=== PATIENT | male | born 1950 | race Caucasian/White ===

== ENCOUNTER 2017-11-25 15:22 | Emergency (ER) | payer OTHER ==
--- NOTE | 2017-11-25 15:37 | PDOC ---
Rapid Medical Evaluation Chief Complaint: Urinary Problem Time Seen by Provider: 11/25/17 15:36 Medical Evaluation: Allergies Allergy/AdvReac Type Severity Reaction Status Date / Time No Known Allergies Allergy Verified 11/25/17 15:35 11/25/17 15:36 The patient presents with a chief complaint of: difficulty in urinating, has not voided since 5 am. I have performed a brief in-person evaluation of this patient; Pertinent physical exam findings: ambulatory, in no respiratory distress I have ordered the following: blake, ua ucx, labs, The patient will proceed to the ED for further evaluation
[2017-11-25 15:39] VITALS: BMI 25.2
[2017-11-25 16:13] LABS: BASO % 0.6 % (0-2.0); EOS % 0.1 % (0-4.5); HEMATOCRIT 42.8 % (35.4-49); HEMOGLOBIN 14.6 GM/dL (11.7-16.9); MEAN CELL VOLUME 90.9 fl (80-96); MEAN PLT VOLUME 10.9 fl (7.5-11.1); MONO % 4.7 % (3.8-10.2); NEUT % 89.6 % (42.8-82.8); PLATELET COUNT 184 K/MM3 (134-434); RBC 4.71 M/mm3 (4.00-5.60); WHITE BLOOD COUNT 11.1 K/mm3 (4.0-10.0)
[2017-11-25 16:18] LABS: URINE APPEARANCE CLEAR; URINE BILIRUBIN NEGATIVE (NEGATIVE); URINE BLOOD 1+ (NEGATIVE); URINE COLOR STRAW; URINE GLUCOSE (UA) NEGATIVE (NEGATIVE); URINE KETONE NEGATIVE (NEGATIVE); URINE LEUK ESTERASE NEGATIVE (NEGATIVE); URINE NITRITE NEGATIVE (NEGATIVE); URINE PROTEIN NEGATIVE (NEGATIVE); URINE UROBILINOGEN NEGATIVE mg/dL (0.2-1.0)
[2017-11-25 16:26] LABS: URINE MUCUS RARE
[2017-11-25 16:48] LABS: ALBUMIN 3.9 g/dl (3.4-5.0); ALK PHOS 84 U/L (45-117); ANION GAP 9 (8-16); BILIRUBIN,TOTAL 0.5 mg/dL (0.2-1.0); BLOOD UREA NITROGEN 13 mg/dL (7-18); CALCIUM 8.5 mg/dL (8.5-10.1); CHLORIDE 108 mmol/L (98-107); CO2 23 mmol/L (21-32); CREATININE 1.3 mg/dL (0.7-1.3); GLUCOSE,RANDOM 116 mg/dL (74-106); POTASSIUM 3.6 mmol/L (3.5-5.1); SGOT/AST 23 U/L (15-37); SGPT/ALT 24 U/L (12-78); SODIUM 140 mmol/L (136-145); TOT PROT 7.4 g/dl (6.4-8.2)
--- NOTE | 2017-11-25 17:04 | PDOC ---
History of Present Illness - General Chief Complaint: Urinary Problem Stated Complaint: URINARY PROBLEM Time Seen by Provider: 11/25/17 15:36 History Source: Patient Exam Limitations: No Limitations - History of Present Illness Travel History: No Initial Comments: 11/25/17 17:05 67-year-old male with no past medical history presents the ED with complaints of urinary retention since this morning. Patient arrived from [place] yesterday and states had no difficulty urinating until this morning when he tried to void and had no urine output. Patient states is the day went on the urgency continued without urinary output and complaints of suprapubic distention. Patient denies fever, chills, hematuria, history of prostate disease, recent UTI , or abdominal pain prior to onset. Patient denies taking [id number] medication. Timing/Duration: reports: getting worse Quality: reports: moderate, fullness Abdominal Pain Onset Location: reports: suprapubic Pain Radiation: reports: no radiation Aggravating Factors: improves with: None Alleviating Factors: improves with: None Past History - Travel Traveled outside of the country in the last 30 days: No - Past Medical History Allergies/Adverse Reactions: Allergies Allergy/AdvReac Type Severity Reaction Status Date / Time No Known Allergies Allergy Verified 11/25/17 15:35 Home Medications: Ambulatory Orders Ciprofloxacin HCl [Cipro] 500 mg PO BID #7 tablet 11/25/17 COPD: No - Immunization History Immunization Up to Date: Yes - Suicide/Smoking/Psychosocial Hx Smoking History: Never smoked Hx Alcohol Use: No Drug/Substance Use Hx: No Patient Lives Alone: No Lives with/in: spouse/SO Review of Systems - Review of Systems Able to Perform ROS?: Yes Constitutional: No: Symptoms Reported ABD/GI: Yes: Abdominal cramping : Yes: Urgency Musculoskeletal: No: Symptoms Reported Integumentary: No: Symptoms Reported Neurological: No: Symptoms reported *Physical Exam - Vital Signs Last Vital Signs Temp Pulse Resp BP Pulse Ox 97.6 F 93 H 18 146/102 98 11/25/17 15:36 11/25/17 15:36 11/25/17 15:36 11/25/17 15:36 11/25/17 15:36 - Physical Exam General Appearance: Yes: Nourished, Appropriately Dressed. No: Apparent Distress HEENT: positive: PETER Neck: positive: Normal Thyroid Respiratory/Chest: positive: Lungs Clear, Normal Breath Sounds. negative: Respiratory Distress, Accessory Muscle Use Cardiovascular: positive: Regular Rhythm, Regular Rate. negative: Murmur Gastrointestinal/Abdominal: positive: Soft. negative: Tenderness Male Genitalia: positive: normal genitalia, other (Gallegos catheter in place upon my my arrival. Gallegos was placed in RME. urine clear and yellow. total 450ml) Musculoskeletal: negative: CVA Tenderness Extremity: positive: Normal Capillary Refill. negative: Pedal Edema Neurologic: positive: Motor Strength 5/5 (ambulatory) ED Treatment Course - LABORATORY CBC & Chemistry Diagram: 11/25/17 15:58 11/25/17 15:58 - ADDITIONAL ORDERS Additional order review: Laboratory Results 11/25/17 11/25/17 15:58 15:58 Sodium 140 Potassium 3.6 Chloride 108 H Carbon Dioxide 23 Anion Gap 9 BUN 13 Creatinine 1.3 Creat Clearance w eGFR 55.40 Random Glucose 116 H Calcium 8.5 Total Bilirubin 0.5 AST 23 ALT 24 Alkaline Phosphatase 84 Total Protein 7.4 Albumin 3.9 Urine Color Straw Urine Appearance Clear Urine pH 7.0 Ur Specific [place] 1.008 Urine Protein Negative Urine Glucose (UA) Negative Urine Ketones Negative Urine Blood 1+ H Urine Nitrite Negative Urine Bilirubin Negative Urine Urobilinogen Negative Ur Leukocyte Esterase Negative Urine WBC (Auto) None Urine RBC (Auto) 30 Urine Mucus Rare 11/25/17 15:58 RBC 4.71 MCV 90.9 MCHC 34.0 RDW 14.0 MPV 10.9 Neutrophils % 89.6 H Lymphocytes % 5.0 L Monocytes % 4.7 Eosinophils % 0.1 Basophils % 0.6 - RADIOLOGY Radiology Studies Ordered: Category Date Time Status PELVIC / BLADDER US [US] Stat Ultrasound 11/25/17 16:39 Ordered Medical Decision Making - Medical Decision Making 11/25/17 17:07 Patient with urinary retention since this morning. Patient also suprapubic pressure upon triage arrival. Patient had labs, urine and Gallegos catheter placed out in rapid medical evaluation. Patient upon my arrival with no complaints and comfortable. Patient ordered for pelvic/bladder ultrasound to rule out bladder mass. 11/25/17 17:09 Laboratory Tests 11/25/17 11/25/17 11/25/17 15:58 15:58 15:58 WBC 11.1 H Hgb 14.6 Hct 42.8 Plt Count 184 Neutrophils % 89.6 H Sodium 140 Potassium 3.6 Chloride 108 H Carbon Dioxide 23 Anion Gap 9 BUN 13 Creatinine 1.3 Random Glucose 116 H Calcium 8.5 Total Bilirubin 0.5 AST 23 ALT 24 Alkaline Phosphatase 84 Urine Blood 1+ H Urine Nitrite Negative Ur Leukocyte Esterase Negative Urine WBC (Auto) None Urine RBC (Auto) 30 Urine Mucus Rare 11/25/17 19:00 Patient currently at ultrasound. will endorse for follow-up *DC/Admit/Observation/Transfer Diagnosis at time of Disposition: Urinary retention, Enlarged prostate - Discharge Dispostion Disposition: HOME Condition at time of disposition: Stable - Prescriptions Prescriptions: Ciprofloxacin HCl [Cipro] 500 mg PO BID #7 tablet - Referrals Referrals: Rupesh Gómez MD., [Staff Physician] - - Patient Instructions Printed Discharge Instructions: DI for Urinary Retention in Men Additional Instructions: Your Discharge Instructions: You must call primary care physician within 24 hours to arrange follow-up. Return to the Emergency Department with any new, persistent or worsening symptoms, for fever, chills, SOB, dizziness or any other concerning changes that may occur. He must return to the emergency room on 11/30/17 for Gallegos removal. He was follow-up with the urologist for further evaluation of the large prostate. The ultrasound report has been provided for you. If you need further copies of the images return to the medical records department to obtain this. - Post Discharge Activity
[2017-11-25 18:14] VITALS: BP 150/89; PULSE 73; TEMP 98
--- NOTE | 2017-11-25 20:56 | PDOC ---
*Physical Exam - Vital Signs Last Vital Signs Temp Pulse Resp BP Pulse Ox 98.0 F 73 16 150/89 97 11/25/17 18:13 11/25/17 18:13 11/25/17 18:13 11/25/17 18:13 11/25/17 18:13 ED Treatment Course - LABORATORY CBC & Chemistry Diagram: 11/25/17 15:58 11/25/17 15:58 - ADDITIONAL ORDERS Additional order review: Laboratory Results 11/25/17 11/25/17 15:58 15:58 Sodium 140 Potassium 3.6 Chloride 108 H Carbon Dioxide 23 Anion Gap 9 BUN 13 Creatinine 1.3 Creat Clearance w eGFR 55.40 Random Glucose 116 H Calcium 8.5 Total Bilirubin 0.5 AST 23 ALT 24 Alkaline Phosphatase 84 Total Protein 7.4 Albumin 3.9 Urine Color Straw Urine Appearance Clear Urine pH 7.0 Ur Specific [place] 1.008 Urine Protein Negative Urine Glucose (UA) Negative Urine Ketones Negative Urine Blood 1+ H Urine Nitrite Negative Urine Bilirubin Negative Urine Urobilinogen Negative Ur Leukocyte Esterase Negative Urine WBC (Auto) None Urine RBC (Auto) 30 Urine Mucus Rare 11/25/17 15:58 RBC 4.71 MCV 90.9 MCHC 34.0 RDW 14.0 MPV 10.9 Neutrophils % 89.6 H Lymphocytes % 5.0 L Monocytes % 4.7 Eosinophils % 0.1 Basophils % 0.6 Medical Decision Making - Medical Decision Making 11/25/17 20:49 Patient was endorsed to me to follow ultrasound and disposition Patient seen and evaluated he is in no acute distress Gallegos is draining appropriately. Xiomy states that the patient will return to [place] on 12/11/17. Ultrasound results discussed with the xiomy who is Persian speaking. She was instructed to bring the patient back on Wednesday to the emergency room for follow-up and for Gallegos removal. Understands that he will be on antibiotics until the Gallegos comes out. She is also requesting a follow-up with urology for further testing and evaluation of the prostate. I discussed the physical exam findings, ancillary test results and final diagnoses with the patient. I answered all of the patient's questions. The patient was satisfied with the care received and felt comfortable with the discharge plan and treatment plan. The Patient agrees to follow up with the primary care physician within 24-72 hours. 11/25/17 20:56 *DC/Admit/Observation/Transfer Diagnosis at time of Disposition: Urinary retention, Enlarged prostate - Discharge Dispostion Disposition: HOME Condition at time of disposition: Stable - Referrals Referrals: Rupesh Gómez MD., MD [Staff Physician] - - Patient Instructions Printed Discharge Instructions: DI for Urinary Retention in Men Additional Instructions: Your Discharge Instructions: You must call primary care physician within 24 hours to arrange follow-up. Return to the Emergency Department with any new, persistent or worsening symptoms, for fever, chills, SOB, dizziness or any other concerning changes that may occur. He must return to the emergency room on 11/30/17 for Gallegos removal. He was follow-up with the urologist for further evaluation of the large prostate. The ultrasound report has been provided for you. If you need further copies of the images return to the medical records department to obtain this. - Post Discharge Activity
[2017-11-25] MEDS ORDERED: CIPROFLOXACIN 500 MG TABLET (RESTRICTED TO ID) PO ONE (20:57)
== END 2017-11-25 21:09 | disposition home or self-care (01) ==
LOC: JER 15:22
PROC: 0T9B70Z Drainage of Bladder with Drainage Device, Via Natural or Artificial Opening (ICD-10-PCS; principal; 2017-11-25)
DX: R33.9 Retention of urine, unspecified (principal); N40.0 Benign prostatic hyperplasia without lower urinary tract symptoms
CPT/HCPCS: 36415; 76856-TC; 80053; 81003; 81015; 85025; 87086; 99283-25

== ENCOUNTER 2017-11-30 10:13 | Emergency (ER) | payer OTHER ==
[2017-11-30 10:33] VITALS: BP 147/67; PULSE 78; TEMP 98.6; BMI 25.7
--- NOTE | 2017-11-30 10:39 | PDOC ---
History of Present Illness - General Chief Complaint: Urinary Problem Stated Complaint: URINARY PROBLEM Time Seen by Provider: 11/30/17 10:38 History Source: Patient, Family (son) Exam Limitations: No Limitations - History of Present Illness Initial Comments: 67 yo M history BPH, visiting from [place], evaluated in ED 5 days ago with urinary retention. He was instructed to return to have blake removed today. He has not yet made an appointment with urology. Denies any pain, fever, N/V. Past History - Past Medical History Allergies/Adverse Reactions: Allergies Allergy/AdvReac Type Severity Reaction Status Date / Time No Known Allergies Allergy Verified 11/30/17 10:26 Home Medications: Ambulatory Orders Ciprofloxacin HCl [Cipro] 500 mg PO BID #7 tablet 11/25/17 Sulfamethoxazole/Trimethoprim [Bactrim Ds -] 1 tab PO BID #14 tablet 11/30/17 Tamsulosin HCl [Flomax] 0.4 mg PO HS #14 capsule 11/30/17 COPD: No - Immunization History Immunization Up to Date: Yes - Suicide/Smoking/Psychosocial Hx Smoking History: Never smoked Hx Alcohol Use: No Drug/Substance Use Hx: No Review of Systems - Review of Systems Able to Perform ROS?: Yes Comments:: GENERAL/CONSTITUTIONAL: No fever or chills. No weakness. HEAD, EYES, EARS, NOSE AND THROAT: No change in vision. No ear pain or discharge. No sore throat. CARDIOVASCULAR: No chest pain or shortness of breath. RESPIRATORY: No cough, wheezing, or hemoptysis. GASTROINTESTINAL: No nausea, vomiting, diarrhea or constipation. GENITOURINARY: No dysuria, frequency, or change in urination. MUSCULOSKELETAL: No joint or muscle swelling or pain. No neck or back pain. SKIN: No rash NEUROLOGIC: No headache, vertigo, loss of consciousness, or change in strength/ sensation. ENDOCRINE: No increased thirst. No abnormal weight change. HEMATOLOGIC/LYMPHATIC: No anemia, easy bleeding, or history of blood clots. ALLERGIC/IMMUNOLOGIC: No hives or skin allergy. *Physical Exam - Vital Signs Last Vital Signs Temp Pulse Resp BP Pulse Ox 98.6 F 78 20 147/67 100 11/30/17 10:26 11/30/17 10:26 11/30/17 10:26 11/30/17 10:11/30/17 10:26 - Physical Exam Comments: GENERAL: Awake, alert, and fully oriented, in no acute distress HEAD: No signs of trauma EYES: PERRLA, EOMI, sclera anicteric, conjunctiva clear ENT: Auricles normal inspection, hearing grossly normal, nares patent, oropharynx clear without exudates. Moist mucosa NECK: Normal ROM, supple, no lymphadenopathy, JVD, or masses LUNGS: Breath sounds equal, clear to auscultation bilaterally. No wheezes, and no crackles HEART: Regular rate and rhythm, normal S1 and S2, no murmurs, rubs or gallops ABDOMEN: Soft, nontender, normoactive bowel sounds. No guarding, no rebound. No masses EXTREMITIES: Normal range of motion, no edema. No clubbing or cyanosis. No cords, erythema, or tenderness NEUROLOGICAL: Cranial nerves II through XII grossly intact. Normal speech, normal gait SKIN: Warm, Dry, normal turgor, no rashes or lesions noted. Medical Decision Making - Medical Decision Making Pt initially presented requesting blake catheter removal. My initial plan was to ensure urology f/u and discharge, as it has only been 5 days, and this should be managed by a specialist. However, patient is visiting from [place] and has detailed itinerary. Preferred to have it removed with trial of void. He voided soon after removal, however, subsequently developed retention again, requiring placement of new blake. I started him on bactrim for UTI, flomax for BPH. Spoke to the son, who has now made an appointment with Dr. Gómez for tomorrow. *DC/Admit/Observation/Transfer Diagnosis at time of Disposition: Urinary retention UTI (urinary tract infection) Qualifiers: Urinary tract infection type: acute cystitis Hematuria presence: without hematuria Qualified Code(s): N30.00 - Acute cystitis without hematuria - Discharge Dispostion Disposition: HOME Condition at time of disposition: Stable Admit: No - Prescriptions Prescriptions: Sulfamethoxazole/Trimethoprim [Bactrim Ds -] 1 tab PO BID #14 tablet Tamsulosin HCl [Flomax] 0.4 mg PO HS #14 capsule - Referrals - Patient Instructions Printed Discharge Instructions: DI for Urinary Tract Infection (UTI) Print Language: CITIZEN OF [place] - Post Discharge Activity
[2017-11-30 12:20] LABS: PH,URINE 8.5 (5.0-8.0); URINE APPEARANCE CLEAR; URINE BILIRUBIN NEGATIVE (NEGATIVE); URINE BLOOD 3+ (NEGATIVE); URINE COLOR DK. RED; URINE GLUCOSE (UA) TRACE (NEGATIVE); URINE KETONE 1+ (NEGATIVE); URINE UROBILINOGEN 4.0 E.U/dl mg/dL (0.2-1.0)
[2017-11-30 12:23] LABS: URINE LEUK ESTERASE 2+ (NEGATIVE); URINE NITRITE POSITIVE (NEGATIVE); URINE PROTEIN 3+ (NEGATIVE)
[2017-11-30] MEDS ORDERED: SULFAMETHOXAZOLE/TRIMETHOPRIM 800MG/160MG D.S. TABLET PO ONE (12:41)
[2017-11-30] MEDS ORDERED: SULFAMETHOXAZOLE/TRIMETHOPRIM 800MG/160MG D.S. TABLET ONE (12:51)
== END 2017-11-30 13:37 | disposition home or self-care (01) ==
LOC: JER 10:13
PROC: 0T2BX0Z Change Drainage Device in Bladder, External Approach (ICD-10-PCS; principal; 2017-11-30)
DX: N40.1 Benign prostatic hyperplasia with lower urinary tract symptoms (principal); R33.8 Other retention of urine
CPT/HCPCS: 81003; 81015; 87086; 99282-25